=== PATIENT | female | born 1945 | race Caucasian/White ===

== ENCOUNTER 2021-07-18 14:26 | Inpatient (IN) ==
[2021-07-18] MEDS ORDERED: methylPREDNISolone SOD SUC 125 MG/2 ML VIAL IV STA (15:37)
[2021-07-18] MEDS ORDERED: ACETAMINOPHEN 325 MG TABLET PO PRN (15:56)
[2021-07-18] MEDS ORDERED: GLUCAGON 1 MG VIAL IM PRN (15:56)
[2021-07-18] MEDS ORDERED: BISACODYL 5 MG TABLET PO PRN (15:56)
[2021-07-18] MEDS ORDERED: ONDANSETRON 4 MG/2 ML VIAL IV PRN (15:56)
[2021-07-18] MEDS ORDERED: DEXTROSE 10% 250 ML BAG IV PRN (15:56)
[2021-07-18] MEDS ORDERED: guaiFENesin/DM ER 600-30 MG TABLET PO PRN (15:56)
[2021-07-18] MEDS ORDERED: ALBUTEROL NEB SOLN 5 MG/ML 20 ML/BOTTLE CONT NEB SCH (16:00)
[2021-07-18 16:11] LABS: Basophils % 0.2 % (0.0-0.8); Hematocrit 39.5 VOL% (35.7-47.0); Hemoglobin 13.3 GM/DL (12.0-16.0); Immature Granulocytes % 0.6 %; Immature Granulocytes Absolute 0.07 #; Lymphocytes # 0.7 10*3/uL (1.4-4.0); Lymphocytes % 5.7 % (21.3-54.2); Mean Corpuscular HGB Conc 33.7 GM/DL (32-36); Mean Corpuscular Volume 93.2 FL (87-102); Mean Platelet Volume 9.7 FL (9.6-12.0); Monocytes # 0.6 10*3/uL (0.11-0.8); Monocytes % 5.1 % (1.7-12.7); Neutrophils % 88.4 % (38.7-73.9); Platelet Count 341 T/CUMM (130-400); Red Blood Count 4.24 MC/CUMM (3.8-5.5); Red Cell Distribution Width 12.9 % (9.3-17.3); White Blood Count 12.5 T/CUMM (4-12)
[2021-07-18 16:21] LABS: Alanine Aminotransferase 41 U/L (13-56); Albumin 3.7 G/DL (3.4-5.0); Alkaline Phosphatase 57 U/L (45-117); Aspartate Amino Transferase 38 U/L (0-37); Bilirubin,Total < 0.39 MG/DL (0.20-1.00); Blood Urea Nitrogen 24 MG/DL (7-18); Calcium 9.6 MG/DL (8.5-10.1); Carbon Dioxide 30 MMOL/L (21-32); Chloride 94 MMOL/L (98-107); Glucose 96 MG/DL (74-106); Osmolality,Calculated 269.4 MOS/KG (273-304); Potassium 3.6 MMOL/L (3.5-5.1); Sodium 133 MMOL/L (136-145); Total Protein 7.7 G/DL (6.4-8.2)
[2021-07-18] MEDS: LEVOFLOXACIN INJ 750 MG/150 ML PREMIX IV SCH (16:54)
[2021-07-18] MEDS: ENOXAPARIN 40 MG/0.4 ML SYRINGE SUBCUT SCH (16:55)
[2021-07-18] MEDS: ALBUTEROL/IPRATROPIUM 3 ML NEB RESP TX SCH (20:24)
[2021-07-18] MEDS: methylPREDNISolone SOD SUC 40 MG/1 ML VIAL IV SCH (22:25)
[2021-07-18] MEDS: MONTELUKAST 10 MG TABLET PO SCH (22:25)
[2021-07-18] MEDS: BUDESONIDE/FORMOTEROL 160-4.5 INHALER 6 GM INH SCH (22:25)
[2021-07-19] MEDS: ALBUTEROL/IPRATROPIUM 3 ML NEB RESP TX SCH ×4 (00:27→19:30)
[2021-07-19] MEDS: methylPREDNISolone SOD SUC 40 MG/1 ML VIAL IV SCH ×4 (03:26→21:49)
[2021-07-19 05:47] LABS: Basophils % 0.1 % (0.0-0.8); Hematocrit 34.8 VOL% (35.7-47.0); Hemoglobin 11.7 GM/DL (12.0-16.0); Immature Granulocytes % 0.9 %; Immature Granulocytes Absolute 0.09 #; Lymphocytes # 0.5 10*3/uL (1.4-4.0); Lymphocytes % 4.9 % (21.3-54.2); Mean Corpuscular HGB Conc 33.6 GM/DL (32-36); Mean Corpuscular Volume 93.3 FL (87-102); Mean Platelet Volume 9.4 FL (9.6-12.0); Monocytes # 0.2 10*3/uL (0.11-0.8); Monocytes % 1.5 % (1.7-12.7); Neutrophils % 92.6 % (38.7-73.9); Platelet Count 298 T/CUMM (130-400); Red Blood Count 3.73 MC/CUMM (3.8-5.5); Red Cell Distribution Width 12.9 % (9.3-17.3); White Blood Count 9.9 T/CUMM (4-12)
[2021-07-19 06:09] LABS: Lymphocytes 5 % (20-55); Platelet Estimate Adequate; Total Cells Counted 100
[2021-07-19 06:12] LABS: Calcium 9.2 MG/DL (8.5-10.1); Osmolality,Calculated 268.7 MOS/KG (273-304); Potassium 3.4 MMOL/L (3.5-5.1)
[2021-07-19] MEDS: BUDESONIDE/FORMOTEROL 160-4.5 INHALER 6 GM INH SCH ×2 (09:44→21:49)
[2021-07-19] MEDS: ENOXAPARIN 40 MG/0.4 ML SYRINGE SUBCUT SCH (16:25)
[2021-07-19] MEDS ORDERED: ACLIDINIUM BROMIDE 400 MCG INH SCH (21:00)
[2021-07-19] MEDS: MONTELUKAST 10 MG TABLET PO SCH (21:49)
[2021-07-19] MEDS: ATORVASTATIN 40 MG TABLET PO SCH (21:49)
[2021-07-19] MEDS: amLODIPine 5 MG TABLET PO SCH (21:49)
[2021-07-20] MEDS: ALBUTEROL/IPRATROPIUM 3 ML NEB RESP TX SCH ×5 (00:24→23:50)
[2021-07-20] MEDS: methylPREDNISolone SOD SUC 40 MG/1 ML VIAL IV SCH ×4 (03:59→22:30)
[2021-07-20] MEDS ORDERED: POTASSIUM CHLORIDE 20 MEQ TABLET PO ONE (07:35)
[2021-07-20 08:01] LABS: Basophils % 0.1 % (0.0-0.8); Hematocrit 38.8 VOL% (35.7-47.0); Hemoglobin 12.9 GM/DL (12.0-16.0); Immature Granulocytes % 0.7 %; Lymphocytes # 0.5 10*3/uL (1.4-4.0); Lymphocytes % 3.7 % (21.3-54.2); Mean Corpuscular HGB Conc 33.2 GM/DL (32-36); Mean Corpuscular Volume 93.9 FL (87-102); Mean Platelet Volume 9.2 FL (9.6-12.0); Monocytes # 0.3 10*3/uL (0.11-0.8); Monocytes % 2.1 % (1.7-12.7); Neutrophils % 93.4 % (38.7-73.9); Platelet Count 325 T/CUMM (130-400); Red Blood Count 4.13 MC/CUMM (3.8-5.5); White Blood Count 14.2 T/CUMM (4-12)
[2021-07-20 08:14] LABS: Osmolality,Calculated 273.2 MOS/KG (273-304); Potassium 4.2 MMOL/L (3.5-5.1)
[2021-07-20 08:19] LABS: Lymphocytes 5 % (20-55); Total Cells Counted 100
[2021-07-20 08:20] LABS: Microcytosis Slight
[2021-07-20 08:21] LABS: Platelet Estimate Normal
[2021-07-20] MEDS: BUDESONIDE/FORMOTEROL 160-4.5 INHALER 6 GM INH SCH ×2 (09:11→20:15)
[2021-07-20] MEDS: CLOPIDOGREL 75 MG TABLET PO SCH (09:11)
[2021-07-20] MEDS: ASPIRIN EC 81 MG TABLET PO SCH (09:11)
[2021-07-20] MEDS: ENOXAPARIN 40 MG/0.4 ML SYRINGE SUBCUT SCH (16:50)
[2021-07-20] MEDS: LEVOFLOXACIN INJ 750 MG/150 ML PREMIX IV SCH (16:50)
[2021-07-20] MEDS: MONTELUKAST 10 MG TABLET PO SCH (20:15)
[2021-07-20] MEDS: amLODIPine 5 MG TABLET PO SCH (20:15)
[2021-07-20] MEDS: ATORVASTATIN 40 MG TABLET PO SCH (20:15)
[2021-07-21] MEDS: methylPREDNISolone SOD SUC 40 MG/1 ML VIAL IV SCH ×3 (05:15→20:45)
[2021-07-21] MEDS: ALBUTEROL/IPRATROPIUM 3 ML NEB RESP TX SCH ×3 (07:20→20:04)
[2021-07-21] MEDS: ASPIRIN EC 81 MG TABLET PO SCH (10:03)
[2021-07-21] MEDS: CLOPIDOGREL 75 MG TABLET PO SCH (10:03)
[2021-07-21] MEDS: BUDESONIDE/FORMOTEROL 160-4.5 INHALER 6 GM INH SCH ×2 (10:04→20:45)
[2021-07-21] MEDS: ENOXAPARIN 40 MG/0.4 ML SYRINGE SUBCUT SCH (17:57)
[2021-07-21] MEDS: MONTELUKAST 10 MG TABLET PO SCH (20:45)
[2021-07-21] MEDS: ATORVASTATIN 40 MG TABLET PO SCH (20:45)
[2021-07-21] MEDS: amLODIPine 5 MG TABLET PO SCH (20:45)
[2021-07-22] MEDS: ALBUTEROL/IPRATROPIUM 3 ML NEB RESP TX SCH ×3 (00:35→16:35)
[2021-07-22] MEDS: methylPREDNISolone SOD SUC 40 MG/1 ML VIAL IV SCH (05:10)
[2021-07-22 09:08] VITALS: BP 145/56
[2021-07-22] MEDS: CLOPIDOGREL 75 MG TABLET PO SCH (09:37)
[2021-07-22] MEDS: ASPIRIN EC 81 MG TABLET PO SCH (09:37)
[2021-07-22] MEDS: BUDESONIDE/FORMOTEROL 160-4.5 INHALER 6 GM INH SCH (09:38)
== END 2021-07-22 11:20 | disposition home or self-care (01) | DRG 191 ==
LOC: SUATTDRO → N.ED 14:26 → N.EDINP 15:56 → SUATTDRO 15:56 → N.5E 22:11
PROVIDERS: ADMIT Internal Medicine; ATTEND Internal Medicine

== ENCOUNTER 2021-12-09 10:48 | Inpatient (IN) ==
[2021-12-09 11:12] LABS: Basophils % 0.2 % (0.0-0.8); Eosinophils % 0.1 % (0.00-10.9); Hematocrit 36.5 VOL% (35.7-47.0); Hemoglobin 12.1 GM/DL (12.0-16.0); Immature Granulocytes % 0.5 %; Immature Granulocytes Absolute 0.07 #; Lymphocytes # 0.4 10*3/uL (1.4-4.0); Lymphocytes % 3.3 % (21.3-54.2); Mean Corpuscular HGB Conc 33.2 GM/DL (32-36); Mean Corpuscular Volume 93.4 FL (87-102); Mean Platelet Volume 9.2 FL (9.6-12.0); Monocytes # 0.9 10*3/uL (0.11-0.8); Monocytes % 6.5 % (1.7-12.7); Neutrophils % 89.4 % (38.7-73.9); Platelet Count 320 T/CUMM (130-400); Red Blood Count 3.91 MC/CUMM (3.8-5.5); Red Cell Distribution Width 13.7 % (9.3-17.3); White Blood Count 13.1 T/CUMM (4-12)
[2021-12-09] MEDS ORDERED: methylPREDNISolone SOD SUC 40 MG/1 ML VIAL IV STA (11:21)
[2021-12-09] MEDS ORDERED: ALBUTEROL/IPRATROPIUM 3 ML NEB RESP TX STA (11:23)
[2021-12-09 11:29] LABS: Alanine Aminotransferase 27 U/L (13-56); Albumin 3.9 G/DL (3.4-5.0); Alkaline Phosphatase 59 U/L (45-117); Aspartate Amino Transferase 27 U/L (0-37); Bilirubin,Total < 0.39 MG/DL (0.20-1.00); Blood Urea Nitrogen 23 MG/DL (7-18); Calcium 9.5 MG/DL (8.5-10.1); Carbon Dioxide 30 MMOL/L (21-32); Chloride 99 MMOL/L (98-107); Glucose 117 MG/DL (74-106); Sodium 136 MMOL/L (136-145); Total Protein 6.9 G/DL (6.4-8.2)
[2021-12-09 11:39] LABS: Anisocytosis Slight; Lymphocytes 4 % (20-55); Macrocytosis Slight; Platelet Estimate Normal; Total Cells Counted 100
[2021-12-09 11:46] LABS: INR 0.9; PT Patient Result 10.3 SECS (10.1-12.1); Partial Thromboplastin Time 22.5 SECS (23.7-32.9)
[2021-12-09] MEDS ORDERED: LACTATED RINGERS 500 ML IV ONE (12:00)
[2021-12-09] MEDS ORDERED: LEVOFLOXACIN INJ 750 MG/150 ML PREMIX IV SCH (12:00)
[2021-12-09] MEDS ORDERED: ONDANSETRON 4 MG/2 ML VIAL IV PRN (12:21)
[2021-12-09] MEDS ORDERED: ACETAMINOPHEN 325 MG TABLET PO PRN (12:21)
[2021-12-09] MEDS ORDERED: AZITHROMYCIN 250 MG TABLET PO SCH (12:30)
[2021-12-09] MEDS ORDERED: AZITHROMYCIN INJ 500 MG in SODIUM CHLORIDE 0.9% 250 ML IV SCH (13:00)
[2021-12-09] MEDS: ALBUTEROL/IPRATROPIUM 3 ML NEB RESP TX SCH ×2 (13:00→19:05)
[2021-12-09] MEDS: SODIUM CHLORIDE 0.9% 1,000 ML IV SCH (13:50)
[2021-12-09] MEDS: cefTRIAXone 2,000 MG in SODIUM CHLORIDE 0.9% 100 ML IV SCH (16:35)
[2021-12-09] MEDS: BUDESONIDE/FORMOTEROL 160-4.5 INHALER 6 GM INH SCH (20:46)
[2021-12-09] MEDS: methylPREDNISolone SOD SUC 40 MG/1 ML VIAL IV SCH (20:47)
[2021-12-09] MEDS: ENOXAPARIN 30 MG/0.3 ML SYRINGE SUBCUT SCH (20:47)
[2021-12-09] MEDS: ATORVASTATIN 40 MG TABLET PO SCH (20:48)
[2021-12-09] MEDS: amLODIPine 5 MG TABLET PO SCH (20:48)
[2021-12-09] MEDS: ACLIDINIUM BROMIDE 400 MCG INH SCH (20:55)
[2021-12-10] MEDS: methylPREDNISolone SOD SUC 40 MG/1 ML VIAL IV SCH ×3 (03:53→20:55)
[2021-12-10 06:23] LABS: Hematocrit 33.9 VOL% (35.7-47.0); Immature Granulocytes % 0.5 %; Immature Granulocytes Absolute 0.03 #; Lymphocytes # 0.3 10*3/uL (1.4-4.0); Lymphocytes % 5.1 % (21.3-54.2); Mean Corpuscular HGB Conc 32.4 GM/DL (32-36); Mean Platelet Volume 9.6 FL (9.6-12.0); Monocytes # 0.2 10*3/uL (0.11-0.8); Monocytes % 3.5 % (1.7-12.7); Neutrophils % 90.9 % (38.7-73.9); Platelet Count 306 T/CUMM (130-400); Red Blood Count 3.57 MC/CUMM (3.8-5.5); Red Cell Distribution Width 13.3 % (9.3-17.3); White Blood Count 6.7 T/CUMM (4-12)
[2021-12-10 06:45] LABS: Alanine Aminotransferase 25 U/L (13-56); Albumin 3.2 G/DL (3.4-5.0); Alkaline Phosphatase 49 U/L (45-117); Aspartate Amino Transferase 26 U/L (0-37); Bilirubin,Total < 0.39 MG/DL (0.20-1.00); Blood Urea Nitrogen 18 MG/DL (7-18); Calcium 9.1 MG/DL (8.5-10.1); Carbon Dioxide 29 MMOL/L (21-32); Chloride 103 MMOL/L (98-107); Glucose 134 MG/DL (74-106); Osmolality,Calculated 278.7 MOS/KG (273-304); Potassium 4.2 MMOL/L (3.5-5.1); Sodium 138 MMOL/L (136-145); Thyroid Stimulating Hormone 0.094 uIU/ml (0.358-3.74); Total Protein 6.4 G/DL (6.4-8.2)
[2021-12-10 06:46] LABS: Hypochromia Slight; Lymphocytes 2 % (20-55); Microcytosis Slight; Platelet Estimate Adequate; Total Cells Counted 100
[2021-12-10] MEDS: ALBUTEROL/IPRATROPIUM 3 ML NEB RESP TX SCH ×4 (07:35→19:25)
[2021-12-10] MEDS: BUDESONIDE/FORMOTEROL 160-4.5 INHALER 6 GM INH SCH ×2 (08:14→20:56)
[2021-12-10] MEDS: PANTOPRAZOLE 40 MG TABLET PO SCH (08:14)
[2021-12-10] MEDS: CLOPIDOGREL 75 MG TABLET PO SCH (08:14)
[2021-12-10] MEDS: ACLIDINIUM BROMIDE 400 MCG INH SCH ×2 (08:16→20:56)
[2021-12-10] MEDS: SODIUM CHLORIDE 0.9% 1,000 ML IV SCH (08:16)
[2021-12-10] MEDS ORDERED: AZITHROMYCIN 250 MG TABLET PO SCH (09:00)
[2021-12-10] MEDS: cefTRIAXone 2,000 MG in SODIUM CHLORIDE 0.9% 100 ML IV SCH (10:15)
[2021-12-10] MEDS: ENOXAPARIN 30 MG/0.3 ML SYRINGE SUBCUT SCH (20:55)
[2021-12-10] MEDS: amLODIPine 5 MG TABLET PO SCH (20:55)
[2021-12-10] MEDS: ATORVASTATIN 40 MG TABLET PO SCH (20:55)
[2021-12-11] MEDS: ALBUTEROL/IPRATROPIUM 3 ML NEB RESP TX SCH ×4 (00:08→19:10)
[2021-12-11] MEDS: methylPREDNISolone SOD SUC 40 MG/1 ML VIAL IV SCH ×3 (06:29→20:22)
[2021-12-11] MEDS: PANTOPRAZOLE 40 MG TABLET PO SCH (09:12)
[2021-12-11] MEDS: CLOPIDOGREL 75 MG TABLET PO SCH (09:13)
[2021-12-11] MEDS: BUDESONIDE/FORMOTEROL 160-4.5 INHALER 6 GM INH SCH ×2 (09:13→20:18)
[2021-12-11] MEDS: guaiFENesin 200 MG/10 ML UDCUP PO PRN (09:14)
[2021-12-11] MEDS: ACLIDINIUM BROMIDE 400 MCG INH SCH ×2 (09:14→20:18)
[2021-12-11] MEDS: ASPIRIN EC 81 MG TABLET PO SCH (11:25)
[2021-12-11] MEDS: MONTELUKAST 10 MG TABLET PO SCH (11:25)
[2021-12-11] MEDS: DOCUSATE SODIUM 100 MG CAPSULE PO SCH (11:25)
[2021-12-11] MEDS: SODIUM CHLORIDE 0.9% 1,000 ML IV SCH (13:29)
[2021-12-11] MEDS: ATORVASTATIN 40 MG TABLET PO SCH (20:18)
[2021-12-11] MEDS: ENOXAPARIN 40 MG/0.4 ML SYRINGE SUBCUT SCH (20:18)
[2021-12-11] MEDS: amLODIPine 5 MG TABLET PO SCH (20:19)
[2021-12-12] MEDS: SODIUM CHLORIDE 0.9% 1,000 ML IV SCH (05:42)
[2021-12-12] MEDS: methylPREDNISolone SOD SUC 40 MG/1 ML VIAL IV SCH ×3 (05:43→21:19)
[2021-12-12] MEDS: guaiFENesin 200 MG/10 ML UDCUP PO PRN ×2 (05:45→21:22)
[2021-12-12] MEDS: ALBUTEROL/IPRATROPIUM 3 ML NEB RESP TX SCH ×5 (07:25→23:20)
[2021-12-12] MEDS: BUDESONIDE/FORMOTEROL 160-4.5 INHALER 6 GM INH SCH ×2 (09:11→21:18)
[2021-12-12] MEDS: CLOPIDOGREL 75 MG TABLET PO SCH (09:12)
[2021-12-12] MEDS: ASPIRIN EC 81 MG TABLET PO SCH (09:12)
[2021-12-12] MEDS: PANTOPRAZOLE 40 MG TABLET PO SCH (09:12)
[2021-12-12] MEDS: DOCUSATE SODIUM 100 MG CAPSULE PO SCH (09:12)
[2021-12-12] MEDS: MONTELUKAST 10 MG TABLET PO SCH (09:12)
[2021-12-12] MEDS: ACLIDINIUM BROMIDE 400 MCG INH SCH ×2 (09:12→21:18)
[2021-12-12] MEDS: amLODIPine 5 MG TABLET PO SCH (21:22)
[2021-12-12] MEDS: ATORVASTATIN 40 MG TABLET PO SCH (21:22)
[2021-12-12] MEDS: ENOXAPARIN 40 MG/0.4 ML SYRINGE SUBCUT SCH (21:23)
[2021-12-13] MEDS: SODIUM CHLORIDE 0.9% 1,000 ML IV SCH ×2 (00:47→20:33)
[2021-12-13] MEDS: methylPREDNISolone SOD SUC 40 MG/1 ML VIAL IV SCH ×3 (04:58→20:42)
[2021-12-13] MEDS: ALBUTEROL/IPRATROPIUM 3 ML NEB RESP TX SCH ×3 (07:38→19:05)
[2021-12-13] MEDS: MONTELUKAST 10 MG TABLET PO SCH (09:13)
[2021-12-13] MEDS: PANTOPRAZOLE 40 MG TABLET PO SCH (09:13)
[2021-12-13] MEDS: DOCUSATE SODIUM 100 MG CAPSULE PO SCH (09:13)
[2021-12-13] MEDS: CLOPIDOGREL 75 MG TABLET PO SCH (09:13)
[2021-12-13] MEDS: ASPIRIN EC 81 MG TABLET PO SCH (09:14)
[2021-12-13] MEDS: BUDESONIDE/FORMOTEROL 160-4.5 INHALER 6 GM INH SCH ×2 (09:14→20:43)
[2021-12-13] MEDS: ACLIDINIUM BROMIDE 400 MCG INH SCH ×2 (09:14→20:43)
[2021-12-13] MEDS: guaiFENesin 200 MG/10 ML UDCUP PO PRN (20:39)
[2021-12-13] MEDS: ATORVASTATIN 40 MG TABLET PO SCH (20:40)
[2021-12-13] MEDS: amLODIPine 5 MG TABLET PO SCH (20:40)
[2021-12-13] MEDS: ENOXAPARIN 40 MG/0.4 ML SYRINGE SUBCUT SCH (20:41)
[2021-12-14] MEDS: ALBUTEROL/IPRATROPIUM 3 ML NEB RESP TX SCH ×2 (00:04→07:15)
[2021-12-14] MEDS: methylPREDNISolone SOD SUC 40 MG/1 ML VIAL IV SCH (05:14)
[2021-12-14 08:18] VITALS: BP 148/72
[2021-12-14] MEDS: DOCUSATE SODIUM 100 MG CAPSULE PO SCH (08:39)
[2021-12-14] MEDS: MONTELUKAST 10 MG TABLET PO SCH (08:39)
[2021-12-14] MEDS: BUDESONIDE/FORMOTEROL 160-4.5 INHALER 6 GM INH SCH (08:40)
[2021-12-14] MEDS: PANTOPRAZOLE 40 MG TABLET PO SCH (08:40)
[2021-12-14] MEDS: ACLIDINIUM BROMIDE 400 MCG INH SCH (08:40)
[2021-12-14] MEDS: CLOPIDOGREL 75 MG TABLET PO SCH (08:40)
[2021-12-14] MEDS: ASPIRIN EC 81 MG TABLET PO SCH (08:40)
== END 2021-12-14 10:17 | disposition home or self-care (01) | DRG 191 ==
LOC: N.ED 10:48 → N.EDINP 12:21 → SUATTDRO 12:21 → N.5E 14:58
PROVIDERS: ADMIT Emergency Medicine; ATTEND Internal Medicine Geriatric Medicine